=== PATIENT | female | born 1945 | race Caucasian/White ===

== ENCOUNTER 2024-07-30 17:21 | Emergency (ER) | payer MEDICARE ==
[~2024-07-30] VITALS: Ht 162.6 cm; Wt 72.7 kg
[2024-07-30 18:34] LABS: BASO % 0.3 % (0.0-1.0); EOS # 0.1 10^3/uL (0.0-0.5); EOS % 0.9 % (0.0-3.0); HEMATOCRIT 34.4 % (36.0-47.0); HEMOGLOBIN 12.5 g/dl (12.0-15.5); LYMPH # 1.9 10^3/uL (1.5-5.0); LYMPH % 27.9 % (24.0-44.0); MEAN CORPUSCULAR HGB CONC 36.3 g/dl (32.0-36.5); MEAN CORPUSCULAR VOLUME 90.8 fl (80.0-96.0); MONO # 0.6 10^3/uL (0.0-0.8); MONO % 9.3 % (2.0-8.0); NEUTROPHILS # 4.2 10^3/uL (1.5-8.5); NEUTROPHILS % 61.3 % (36.0-66.0); PLATELET COUNT, AUTOMATED 185 10^3/uL (150-450); RED BLOOD COUNT 3.79 10^6/uL (4.00-5.40); WHITE BLOOD COUNT 6.9 10^3/uL (4.0-10.0)
[2024-07-30] MEDS: PANTOPRAZOLE 40MG VIAL IV ONE (18:34)
[2024-07-30] MEDS: METOCLOPRAMIDE INJ 10MG/2ML VIAL IV ONE (18:34)
[2024-07-30] MEDS: SUCRALFATE SUSP 1GM/10ML UD PO ONE (18:34)
[2024-07-30] MEDS: NS (Normal Saline) 0.9% 1,000 ML IV ONE (18:35)
[2024-07-30 19:00] LABS: LIPASE 27 U/L (12-53)
[2024-07-30 19:02] LABS: ALBUMIN 3.9 G/DL (3.2-5.2); ALKALINE PHOSPHATASE 84 U/L (35-104); ALT/SGPT 18 U/L (7.0-40); AST/SGOT 19 U/L (<34); BILIRUBIN,DIRECT 0.1 MG/DL (<0.4); BILIRUBIN,TOTAL 0.5 MG/DL (0.3-1.2); BLOOD UREA NITROGEN 16 MG/DL (9-23); CALCIUM LEVEL 8.8 MG/DL (8.3-10.6); CARBON DIOXIDE LEVEL 24 MMOL/L (20-31); CHLORIDE LEVEL 89 MMOL/L (98-107); CK-MB VALUE MASS < 1.0 NG/ML (<3.6); CPK CREATINE PHOSPHOKINASE 66 U/L (34-145); GLOMERULAR FILTRATION RATE > 90.0 (>39); GLUCOSE, FASTING 105 MG/DL (74-106); MB/CK RELATIVE INDEX 1.51 (< OR =4); POTASSIUM SERUM 3.1 MMOL/L (3.5-5.1); SODIUM LEVEL 126 MMOL/L (136-145)
[2024-07-30 19:30] LABS: CK-MB VALUE MASS < 1.0 NG/ML (<3.6)
[2024-07-30 19:33] LABS: CPK CREATINE PHOSPHOKINASE 71 U/L (34-145)
[2024-07-30] MEDS: POTASSIUM CHLORIDE 10MEQ SR TABLET PO ONE (20:19)
[2024-07-30 21:34] VITALS: O2SAT 98
[2024-07-30 21:45] VITALS: BP 151/68; TEMP 98.2; O2SAT 97
== END 2024-07-30 22:00 | disposition home or self-care (01) ==
LOC: M ED 17:21
DX: E87.6 Hypokalemia (principal); E87.1 Hypo-osmolality and hyponatremia; M62.838 Other muscle spasm; I25.10 Atherosclerotic heart disease of native coronary artery without angina pectoris; I25.2 Old myocardial infarction; I10 Essential (primary) hypertension; Z95.5 Presence of coronary angioplasty implant and graft; Z87.891 Personal history of nicotine dependence
CPT/HCPCS: 71045; 80048; 80076; 82550; 82553; 83690; 84484; 85025; 93005; 93041; 96374; 96375; 99285; J2470; J2765